=== PATIENT | male | born 1950 | race Caucasian/White ===

== ENCOUNTER → 2018-05-14 11:15 | Outpatient (CLI) | payer OTHER, SELFPAY ==
[2018-05-14 12:24] LABS: Add Manual Diff / Slide Review NO; Basophils Percent Auto 1.1 % (0-2); Eosinophils Percent Auto 3.9 % (2-4); Hematocrit 49.5 % (41-53); Hemoglobin 16.6 g/dL (13.5-17.5); Lymphocytes Percent Auto 29.3 % (25-40); Mean Corpuscular HGB Conc 33.5 % (30-36); Mean Corpuscular Hemoglobin 32.1 PG (26-34); Mean Corpuscular Volume 95.5 fL (80-100); Monocytes Percent Auto 7.7 % (3-14); Neutrophils Absolute Auto 4300 /uL (3000-5900); Platelet Count 216 X10^3/uL (150-400); Red Blood Cell Count 5.18 X10^6/uL (4.5-5.9); White Blood Cell Count 7.4 X10^3/uL (4.5-11.0)
[2018-05-14 12:50] LABS: BUN Creatinine Ratio 10.9 (6-22); Blood Urea Nitrogen 12 mg/dL (9-20); Carbon Dioxide 31 mmol/L (22-32); Chloride 103 mmol/L (98-107); Estimated Glomerular Filt Rate > 60.0 mL/min (>60); Glucose 89 mg/dL (80-110); HEMOLYSIS 18 (0-50); Potassium 5.3 mmol/L (3.4-5.1); Sodium 144 mmol/L (137-145)
== END ==
PROVIDERS: Visit Provider Orthopaedic Surgery
DX: Z01.812 Encounter for preprocedural laboratory examination (principal); Z01.818 Encounter for other preprocedural examination
CPT/HCPCS: 36415; 80048; 85025; 93005; 93010

== ENCOUNTER → 2018-06-12 15:57 | Outpatient (CLI) | payer OTHER, SELFPAY ==
--- NOTE | 2018-06-12 | DI.MRI.S_ITS ---
PROCEDURE: MR KNEE LT WO CON INDICATIONS: UNILATERAL PRIMARY OSTEOARTHRITIS LEFT KNEE. LEFT KNEE PAIN TECHNIQUE: Noncontrast sagittal PD fast spin echo and T2 fast spin echo with fat saturation, sagittal 3-D FLASH with fat saturation; coronal T1 spin echo and PD fast spin echo with fat saturation, and axial PD fast spin echo with fat saturation through the knee. COMPARISON: [facility], CR, KNEE MIN 4VW (LT), 11/20/2012, 14:55. FINDINGS: Image quality: Diagnostic Bones and joint: There is no acute fracture or dislocation. No suspicious osseous lesions are evident. There is a moderate-sized knee joint effusion is a tiny associated Sandoval's cyst. There are moderate to severe tricompartmental degenerative changes of the left kidney demonstrating joint space narrowing, extensive chondromalacia, developing marginal osteophytes, and areas of degenerative subjective marrow change. These findings are most pronounced within the medial tibiofemoral compartment. Cruciate ligaments: There is moderate grade partial-thickness tear evident involving the anterior cruciate ligament. The posterior cruciate ligament probably is intact. Menisci: There is a complex degenerative tear noted involving the body and posterior horn of the medial meniscus with near complete posterior root avulsion and inferior articular surface extension. A small displaced meniscal flap appears to extend into the posteromedial gutter. There is a very large lobulated para meniscal cyst identified extending along the posterior margin of the knee, which appears to be arising from the posterior horn of the medial meniscus. Additionally, degenerative cystic change within the adjacent bone is also felt to represent an intraosseous para meniscal cyst. This is cyst measures up to approximately 3.7 x 1.9 x 3.1 cm. The lateral meniscus demonstrates a grade partial-thickness tearing involving anterior and posterior roots. Otherwise, the lateral meniscus is intact and within normal limits. Medial structures: There is mild increased signal identified involving the medial collateral ligament. Irregularity at the femoral attachment is suggestive of partial thickness tearing, which may be chronic. The semimembranosus tendon insertion is thickened and demonstrates mild increased signal at its insertion The imaged portions of the pes anserinus tendons are unremarkable. No significant fluid is contained within the pes anserinus bursa. Lateral structures: The popliteal tendon is thickened at its origin. Edema of the proximal aspect of the popliteal muscle is noted. The lateral collateral ligament proper (fibular collateral ligament) and the proximal tibiofibular ligaments are intact. The distal aspect of the biceps femoris tendon and the iliotibial band are intact. Anterior structures: The quadriceps and patellar tendons are intact. There is no significant edema in the infrapatellar fat pad. IMPRESSION: 1. Moderate to severe degenerative changes of the left knee are most pronounced involving the medial compartment. 2. Complex tearing of the medial meniscus, as described. There is a large associated para meniscal cyst evident along the posterior margin of the knee. 3. Moderate grade partial-thickness tear of the anterior cruciate ligament is likely chronic. 4. Proximal popliteal tendinopathy with a corresponding muscle strain. 5. Mild distal semimembranosus tendinopathy. 6. Moderate-sized knee joint effusion. Dictated by: Pj Rooney M.D. on 06/12/2018 at 17:03 Approved by: Pj Rooney M.D. on 06/12/2018 at 17:07
== END ==
PROVIDERS: Visit Provider Orthopaedic Surgery
DX: M17.12 Unilateral primary osteoarthritis, left knee (principal); M25.562 Pain in left knee; S83.232A Complex tear of medial meniscus, current injury, left knee, initial encounter; S83.512A Sprain of anterior cruciate ligament of left knee, initial encounter; S83.8X1A Sprain of other specified parts of right knee, initial encounter; M25.462 Effusion, left knee
CPT/HCPCS: 73721

== ENCOUNTER 2018-07-16 10:25 | Inpatient (IN) | payer OTHER, SELFPAY ==
[2018-07-09 12:42] VITALS: BMI 25.5
[2018-07-16] VITALS (15 sets, daily range): BP systolic 122–182; BP diastolic 64–85; PULSE 55–69; RESP 14–19; TEMP 36.2–36.9; O2SAT 91–100; BMI 25.5
--- NOTE | 2018-07-16 06:30 | DI.RAD.S_ITS ---
PROCEDURE: XR KNEE LT 1TO2V INDICATIONS: prosthesis placement TECHNIQUE: 2 view(s) of the knee acquired. COMPARISON: [facility] Jae Wild, [place], XR KNEE ARTHRITIC SERIES LT, 05/14/2018, 9:24. FINDINGS: Bones: Patient is status post knee joint arthroplasty. Hardware components are in expected positions. Visualized bony structures are intact. Soft tissues: Overlying postoperative changes are noted. Expected postoperative changes within the overlying soft tissues are present with areas of soft tissue air and edema. Anterior skin cipriano are present. Scattered vascular calcifications are noted. IMPRESSION: Expected postoperative changes related to a total left knee arthroplasty. Dictated by: Pj Rooney M.D. on 07/16/2018 at 14:59 Approved by: Pj Rooney M.D. on 07/16/2018 at 15:00
[2018-07-16] MEDS: LACTATED RINGERS 1,000 ML 42 ML IV ×2 (11:22→14:11)
[2018-07-16] MEDS: PREGABALIN 75 MG CAPSULE PO (11:25)
[2018-07-16] MEDS: ACETAMINOPHEN 325 MG TABLET 975 MG PO (11:25)
[2018-07-16] MEDS: CELECOXIB 200 MG CAPSULE PO (11:25)
--- NOTE | 2018-07-16 12:34 | PM.PREOP ---
Pre-operative Note Interval Note Pre-op Check: Yes History & Physical Reviewed by Physician and Yes Exam Performed Changes: No
[2018-07-16] MEDS: CEFAZOLIN 2 GM/100 ML FROZ.PIGGY IV ×2 (13:42→21:09)
--- NOTE | 2018-07-16 14:05 | SUR.OPER ---
Supine on padded OR bed. Pillow under head, arms secured on padded armboards <90 degree abduction. Safety belt across torso. Non-operative leg secured with tape over blanket over lower leg. Operative leg secured in De[employer]/Primitivo positioner. Foam padded brace at thigh of operative leg.
[2018-07-16] MEDS: LIDOCAINE 1% W/EPI INJ 20 ML INJ (14:13)
[2018-07-16] MEDS: BUPIVACAINE 0.5% (PF) 10 ML, TRANEXAMIC ACID 1,000 MG, SODIUM CHLORIDE 0.9% 20 ML INJ (14:15)
[2018-07-16] MEDS: BUPIVACAINE 0.5% W/ EPI (PF) 20 ML, BUPIVACAINE LIPOSOME 266 MG, SODIUM CHLORIDE 0.9% 2... INJ (14:16)
[2018-07-16] MEDS: POVIDONE-IODINE 15 ML, SODIUM CHLORIDE 0.9% 250 ML TOP (14:17)
--- NOTE | 2018-07-16 15:06 | PM.OP.1 ---
Operative Date/Time/Diagnoses Date of procedure: 07/16/18 Time of procedure: 15:06 Pre-op diagnosis: Left knee osteoarthritis Post-op diagnosis: same Procedure & Clinicians Procedure: Left total knee arthroplasty Same procedure as scheduled: Yes Indications: The patient presents today for total knee arthroplasty after failure of conservative treatment. The nature of the procedure including the risks and benefits, alternatives, postoperative course and expected outcome were discussed and all questions answered. Consent was obtained. Operative site confirmed and marked. Surgeon: Davis Diallo Publicity Writer: Sheyla Schneider Anesthesia Type: General and Spinal Operative Notes Findings: Osteoarthritis Closure Type: primary Specimen(s): none sent Implants & Drains: [employer] BCS: 5 femoral component, 5 tibial component, 9 mm BCS polyethylene tray and 35 x 9 mm round patella Applied: implant(s) Estimated Blood Loss (mL): 50 Blood products transfused: none Tourniquet time (min): 26 Procedure in detail: The patient was taken to the operative suite and placed under general and spinal anesthesia. The patient was given prophylactic antibiotics prior to surgery. The patient was also given tranexamic acid, 1 g, just prior to surgery for postoperative hemostasis. The lateral knee was prepped and the joint injected with 20 mL of 1% Lidocaine with epinephrine. The knee was then prepped and draped in usual sterile fashion. The leg was exsanguinated with an Esmarch dressing and the tourniquet raised to 250 torr. A 15 cm anterior incision was made. Next a medial trivector arthrotomy was made. The extensor mechanism was marked to ensure accurate repair. Initial exposing dissection was carried out medially and laterally. The knee was then extended and the patellar thickness was measured and a cut made removing approximately 9 mm of bone with a goal of restoring normal patellar thickness. The patella was then sized and drilled. Some excess lateral bone was excised and the patellofemoral ligament released. The tourniquet was then released. The knee was then flexed and the [employer] femoral guide was placed. The anterior pins were placed and the distal rotation holes drilled. The distal cutting guide was placed and the templated distal femoral cut was made. The templating cutting block was then placed and the anterior, posterior and chamfer cuts made. The [employer] tibial guide was placed and the alignment checked along the axis of the proximal tibial with a devang. The proximal tibial cut was then made with an oscillating saw. All meniscus and bony debris was then removed. Flexion extension gaps were checked. There is just slight tightness medially which was corrected with percutaneous release with an 18 gauge needle of the MCL. The soft tissues were then injected with a combination of 20 mL of half percent Marcaine with epinephrine and 20 mL of Exparel. The trial components were then placed. The knee went into full extension and flexion beyond 120?. There was excellent medial- lateral balance throughout motion. There is a slight increased laxity in flexion versus extension. Patellar tracking was excellent. The trial components were removed and size is confirmed for the final implants. The knee was then exsanguinated with an Esmarch dressing and the tourniquet reapplied for cementing. The knee was cleansed with Pulsavac irrigation and dried. The final components were cemented in with high viscosity vacuum mixed bone cement with antibiotics. The knee was held in extension and the patellar clamp until the cement had adequately cured. The knee was then irrigated with dilute Betadine solution. The extensor mechanism was closed with 5 interrupted #1 Vicryl sutures in 90 degrees of flexion. [The joint was then injected with a combination of 1 g of tranexamic acid and 20 mL of quarter percent Marcaine with epinephrine.] The subcutaneous tissue was closed with 2-0 Vicryl. The skin was closed with [cipriano and surgical adhesive]. [ An Aquacell] dressing and Josh wrap were then applied. Complications: none Condition: stable Disposition: PACU Plan for aftercare: Standard postoperative total knee protocol.
--- NOTE | 2018-07-16 16:07 | SUR.PHASEI ---
PT TOLERATING COFFEE, DENIES PAIN, MOVING ALL EXTREMITIES, DRESSING REMAINS DRY AND INTACT. REPORT GIVEN TO ARIES FOWLER ON ACUTE CARE
[2018-07-16] MEDS: LACTATED RINGERS 1,000 ML 125 ML IV (16:48)
--- NOTE | 2018-07-16 17:12 | PC.NURSE ---
Addendum entered by Luz Horton R.N. 07/16/18 23:17: pt only able void about 50ml of urine at approximately 2245 .bladder scan sohws about 411ml of residual urine. educated pt on order for catheter which pt refused. pt voiced having a difficult insertion during prior knee surgery which required a urologist to insert catheter. pt verbally agreeable to increase oral intake of fluids and get up to bathroom more regularly with the oncoming shift supervisor to try to empty his bladder on his own. pt currently resting in bed, alarm on for safety. call light within reach. Original Note: Addendum entered by Luz Hroton R.N. 07/16/18 19:58: pt needs a lot of reinforcement and education on proper mobility and knee precautions. 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 staff again reinforced safety to pt and pt's . pt's sitting at bedside and laughing at the pt, does not assist staff in helping to keep pt safe (IE: will not notify staff when pt attempting to get up by self). pt with no void since about 1030 and denies any sensation to want to void. pt also refused to use urinal or have staff assist with attempting to void despite education about preventing bladder infection. staff will attempt to get pt to void again later in the shift. pt currently sitting up in chair with chair alarm. call light within reach. Original Note: Addendum entered by Luz Horton R.N. 07/16/18 18:36: pt attempting to get up from bed, states there is no pain to L knee. reinforced safety and fall precautions to pt as his numbness still persists but pt very insistent that he can sit at the bedside. bed alarm placed. at bedside and asked to inform staff if pt attempts to get up on his own. Original Note: Addendum entered by Luz Horton R.N. 07/16/18 17:22: pt verbalized that he is withdrawing from his cigarettes but declined to have a nicotine patch placed. pt states having coffee will help at this time. will continue to monitor. Original Note: POST-OP Received pt at approximately 1615 via bed. Ox3, pt with some inappropriate jokes regarding wanting friends to bring in alcohol or commenting that the female staff are good looking. at bedside during these remarks and will intermittently remind pt to behave. L knee with CHERISE wrap dressing CDI, no drains. pt states numbness to bilateral feet (which was present prior to surgery), and able to lift legs off the bed with minimal assist. pt placed on continuous O2 monitoring, needs occasionally reminders to leave pulse ox on. denies any nausea/vomiting. pt and oriented to room. call light within reach.
--- NOTE | 2018-07-16 17:19 | PT.IPTN ---
Current Diagnoses Unilateral primary osteoarthritis, left knee (07/16/18) Surgery Performed Operation Date: 07/16/18 12:15 Actual Procedures p Total Knee Arthroplasty(Left) - Davis Diallo MD Physical Therapy Treatment Note M3 PT-IP Subjective Start: 07/16/18 17:15 Freq: NEEDED Status: Active Protocol: Document 07/16/18 17:15 EA (Rec: 07/16/18 17:18 EA [id number]) Subjective Physical Therapy Visit Type Type Administrative Note Notes Patient approached in bed at 1700; denies complete sensory to both feet. Pain rated 0/10. Nurse in-charged reports patient just got in the unit 45 mins ago and feels patient is not ready at this time. Patient agreeable to participate in PT eval tomorrow morning.
[2018-07-16] MEDS: ASPIRIN EC 81 MG TABLET PO (21:08)
[2018-07-16] MEDS: NAPROXEN 250 MG TABLET 500 MG PO (21:08)
[2018-07-17 00:01] VITALS: BP 157/79; PULSE 53; RESP 16; TEMP 36.3; O2SAT 98
[2018-07-17] MEDS: LACTATED RINGERS 1,000 ML 125 ML IV (01:58)
[2018-07-17 04:25] VITALS: BP 129/75; PULSE 54; RESP 15; TEMP 36.6; O2SAT 96
[2018-07-17] MEDS: CEFAZOLIN 2 GM/100 ML FROZ.PIGGY IV (06:08)
[2018-07-17 06:29] LABS: Hematocrit 43.1 % (41-53); Hemoglobin 14.4 g/dL (13.5-17.5)
[2018-07-17 07:15] VITALS: BP 149/84; PULSE 54; RESP 16; TEMP 36.8; O2SAT 95
--- NOTE | 2018-07-17 08:20 | P.DS_ITS ---
History of Present Illness Date Patient Seen: 07/17/18 Time Patient Seen: 08:20 Chief complaint: 11711 LEFT TOTAL KNEE ARTHROPLASTY Narrative: The patient presents today for total knee arthroplasty after failure of conservative treatment. The nature of the procedure including the risks and benefits, alternatives, postoperative course and expected outcome were discussed and all questions answered. Consent was obtained. Operative site confirmed and marked. Discharge Providers Date of admission: 07/16/18 10:25 Primary care physician: Dirk Sparrow MD Consults: 07/09/18 13:46 Consult to Respiratory Therapy Evaluate & Treat Comment: Physician Instructions: Evaluate and treat 07/16/18 06:30 Consult to Anesthesiology Routine Comment: Consulting Provider: Anesthesiologist Reason for consultation: Regional block for post operative pain control 07/16/18 16:22 Consult to Discharge Planning Routine Comment: Consult to Physical Therapy Evaluate & Treat Comment: Physician Instructions: postop TKA protocol Consult to Respiratory Therapy Evaluate & Treat Comment: Physician Instructions: Evaluate and treat Discharge provider: Alem Gipson PA-C Discharge Date: 07/17/18 Summary Discharge Diagnosis: s/p left total knee arthroplasty Hospital Course: Eduardo admitted for left total knee arthroplasty with Dr. Diallo. Hospital course was unremarkable. On postop day 1. Patient was feeling well and wanted to go home. Dressing on left knee with CDI. Josh wrap in place. Patient was eating and voiding without difficulty or assistance. Calves were soft, compressible, nontender bilaterally. Status at Discharge Functional status at discharge: uses cane/walker Exam Vital Signs (past 8 hours): - 07/17/18 04:25 07/17/18 07:15 Temperature 97.8 F 98.3 F Pulse Rate 54 L 54 L Respiratory Rate 15 16 Blood Pressure 129/75 149/84 H Pulse Oximetry 96 95 Oxygen Delivery Method Nasal Cannula Oxygen Flow Rate 2 Narrative Exam Narrative: Patient lying in bed in no acute distress. He is alert and oriented x3. Patient has excellent range of motion in bed. Calves are soft, compressible, nontender bilaterally. Sensation intact to light touch throughout bilateral lower extremities. Pulses are symmetrical. His pain is well controlled with naproxen. Denies any nausea or vomiting. Objective Labs Result Diagrams: 07/17/18 05:52 Labs: Laboratory Results - last 24 hr 07/17/18 05:52 Hgb 14.4 Hct 43.1 Discharge Plan Discharge Plan Patient Disposition: Home Discharge comment: DC home today Discharge Med Rec/Prescriptions Prescriptions: New hydrocodone-acetaminophen [[place]] 5-325 mg tablet 1 tab PO Q4-6H PRN (Reason: pain) Qty: 30 RF: 0 aspirin 81 mg Tablet,Delayed Release (Dr/Ec) 81 mg PO BID Qty: 30 RF: 0 Continue lisinopril 20 mg Tablet 20 mg PO DAILY RF: 0 etodolac 400 mg Tablet 400 mg PO BID RF: 0 albuterol sulfate 1.25 mg/3 mL Solution For Nebulization 1.25 mg INHALATION QID PRN (Reason: asthma) RF: 0 Follow up/Referrals: Davis Diallo MD [Physician] - (Please follow up in 5-7 days ) Provider Discharge Instructions Cold/Heat Therapy: as needed Skin/Wound/Dressing Care Dressing: leave dressing in place Visit Report/Discharge Packet Instructions: DI for Knee Replacement Discharge Data Primary Care Provider: Dirk Sparrow Attending Provider: Davis Diallo Admit Date/Time: 07/16/18 10:25 Quality VTE Deep Vein Thrombosis/Pulmonary Embolism Present on Admission: No
[2018-07-17] MEDS: NAPROXEN 250 MG TABLET 500 MG PO (08:46)
[2018-07-17] MEDS: ACETAMINOPHEN 325 MG TABLET 975 MG PO (08:46)
[2018-07-17] MEDS: ASPIRIN EC 81 MG TABLET PO (08:46)
[2018-07-17] MEDS: LISINOPRIL 20 MG TABLET PO (08:48)
[2018-07-17 09:16] VITALS: PULSE 63; O2SAT 96
--- NOTE | 2018-07-17 09:24 | PT.IIE ---
Addendum entered and electronically signed by Opal Silverio PT 07/17/18 15:23: this is to certify that I reviewed this documentation and plan of care Original Note: Current Diagnoses Unilateral primary osteoarthritis, left knee (07/16/18) Surgery Performed Operation Date: 07/16/18 12:15 Actual Procedures p Total Knee Arthroplasty(Left) - Davis Diallo MD Surgical History (Last Updated 07/09/18 @ 13:24 by Jerica Riojas, RN) History of arthroplasty of right knee (Acute) Hx of hernia repair (Acute) Hx of tonsillectomy (Acute) Medical History (Last Updated 07/09/18 @ 13:33 by Jerica Riojas RN) Anxiety (Acute) Arthritis (Acute) Bradycardia (Acute) Chronic low back pain (Acute) Claustrophobia (Acute) Depression (Acute) Easy bruisability (Acute) HTN (hypertension) (Acute) Impetigo (Acute) Left shoulder pain (Acute) Numbness (Acute) Walking pneumonia (Acute) Physical Therapy Inpatient Evaluation/Re-Eval M1 PT/OT-IP Prior Functional Status Start: 07/16/18 17:15 Freq: NEEDED Status: Discharge Protocol: Document 07/17/18 09:24 (Rec: 07/17/18 10:54 [id number]) Medical Review Prior Functional Status Medical History Reviewed Yes Communication No deficits noted. Mobility and Gait Prior ambulation distance limited to ~100 yrds, independent, no AD. Prior Functional Level (Other details) All other mobilities reported as independent without AD. Social History Household Members spouse children Living Arrangements House Number of Floors (Floors) One Floor Number of Stairs To Enter/Railing? Primary access planned is ramp + landing + ramp with railing on R. Several other access points exist including 5 steps with L rail ascending, and ramp + ramp. Home Environment High Toilet Walk in Shower Home Equipment Front Wheel Walker Four Wheel Walker Shower Seat with Backrest Hand Held Shower Grab Bars In Shower Employment Status Retired Additional Social History Comment Pt lives with significant other who will be avaliable to assist him at d/c for 3 wks. They also live with daughter in law, grandson and several pets. M2 PT-IP Current Condition Start: 07/16/18 17:15 Freq: NEEDED Status: Discharge Protocol: Document 07/17/18 09:24 (Rec: 07/17/18 10:54 [id number]) Physical Therapy Current Condition Current Condition Evaluation Date 07/17/18 Treatment Diagnosis L TKA; difficulty with walking Onset Date 07/16/18 Weight Bearing Status Weight Bearing Status Weight Bear as Tolerated M3 PT-IP Subjective Start: 07/16/18 17:15 Freq: NEEDED Status: Discharge Protocol: Document 07/17/18 09:24 (Rec: 07/17/18 10:54 [id number]) Subjective Physical Therapy Visit Type Type Initial Evaluation Visit Start Time 09:24 Visit Stop Time 10:12 Total Visit Minutes 48 Number of EXPERT WITNESS Visits 0 Physical Therapy Visit Comments Patient Comments Pt states he feels good and is ready for PT. He is anxious to know if he is ready to go home. Therapy Pain Assessment Pain When Pain Assessed During Mobility Pain Present Pain Present Pain Reported Location Right Knee Intensity 4 Scale Used At rest pain 0/10. during mobility 4/10 Pain Management Techniques Apply Cold Elevation Re-positioning Timing of Activity with Medications M4 PT-IP Mobility and Gait Start: 07/16/18 17:15 Freq: NEEDED Status: Discharge Protocol: Document 07/17/18 09:24 (Rec: 07/17/18 10:54 [id number]) PT-Bed Mobility Assessment Supine to Sit Supine to Sit Standby Assistance Sit to Supine Sit to Supine Standby Assistance Scooting Scooting to Edge of Bed Standby Assistance PT-Transfer Assessment Sit to and From Stand Sit to and from Stand Standby Assistance Use of Upper Extremities Equipment Transfer Assistive Device Gait Belt Front Wheeled Walker Orthotic/Prosthetic Devices or Brace: No Transfers Transfer Destination Bed Chair Wheelchair Comments Mobility Comments Pt initially needing CGA for sit <> stands, progresses to SBA by the end of the session. He needs min cues for hand placement throughout the session. Resting in sitting BP = 146/75, HR 64. Standing and marching in place BP is 123/70. Gait Assessment Gait Gait Assistance Required: Standby Assistance Able to Maintain Weight Bearing Status Yes During Gait Assistive Devices Assistive Device Gait Belt Front Wheeled Walker Orthotic/Prosthetic Devices or Brace: No Gait Deviations General Gait Pattern Within Normal Limits Factors Limiting Gait Function Factors Limiting Gait Function Decreased Activity Tolerance Decreased Strength Limited Range of Motion Pain Poor Balance Poor Safety Awareness Comments Gait Comments 10 ft in room amb, CGA and 4ww pt reports some lightheadedness, but states this is the same since he woke up from surgery. 100ft +110 ft, pt is able to maintain consistent step through pattern during ambulation, SBA with fww. He needs cues to slow down. Education regarding self pacing and maintaining quality gait vs. speed was discussed. Post amb BP 135/71. HR 60. Stair Climbing Assessment Evaluation Level of Assist On Stairs Standby Assistance Devices Stair Climbing Assistive Devices Left Railing Technique/Endurance Stair Climbing Direction Ascend and Descend Stair Climbing Technique Step to Step Number of Steps Climbed 3 Query Text: Stair Climbing Set # Repetitions (reps) 2 Comments Stair Climbing Comments Trial 1: Pt up/down 3 steps with L rail ascending, CGA for balance and mod cues for foot placement and activation of LLE. Trial 2: Pt up/down 3 steps with L rail ascending, SBA and min cues for foot placement. Caregiver/spouse was educated in concepts of staying closeby for SBA and hand placement on gait belt. PT-Balance Assessment Sitting Balance and Reactions Static Sitting Balance Ability Good Dynamic Sitting Balance Ability Good Standing Balance and Reactions Static Standing Balance Ability Fair Dynamic Standing Balance Ability Fair Device Used fww M5 PT-IP Objective Assessments Start: 07/16/18 17:15 Freq: NEEDED Status: Discharge Protocol: Document 07/17/18 09:24 (Rec: 07/17/18 10:54 [id number]) Orientation Orientation/Cognition Level of Alertness Alert Orientation Name Birthday Date Place Situation Language Function Ability No Deficits Noted Safety Awareness Decreased Safety Awareness Gross Range of Motion Lower Extremity ROM Assessment Left Impaired Impairments LLE flexion ~80deg. Strength Lower Extremity Strength Assessment Left Impaired Comments Strength Comments LLE strength is grossly 4/5. RLE WNL. Sensation Assessment Comments Sensation Comments States he is able to feel his feet. M6 PT-IP Treatment Start: 07/16/18 17:15 Freq: NEEDED Status: Discharge Protocol: Document 07/17/18 09:24 (Rec: 07/17/18 10:54 [id number]) Physical Therapy Treatment Education Education Provided Precautions Weight Bearing Status Post-Op Packet Safety M7 PT-IP Assessment and Plan Start: 07/16/18 17:15 Freq: NEEDED Status: Discharge Protocol: Document 07/17/18 09:24 (Rec: 07/17/18 10:54 [id number]) PT Summary Assessment and Plan Potential Rehabilitation Potential Good Status of Condition at Evaluation Stable Summary Impairments Pain ROM Strength Balance Bed Mobility Transfers Gait Activity Tolerance Progress Towards Goals Progressing Toward Goals Assessment Summary Pt s/p L TKA and difficulty with gait. Today's session was tolerated well including 200+ ft ambulation, and stair climbing. Patient is safe to d/c home with 24/ assist and f/u in OP PT for rehab s/p TKA . Goals Bed Mobility Goal Independent Transfer Goal Independent Front Wheeled Walker Gait Goal Independent Front Wheel Walker Days to Meet Goals 2 Frequency of Treatment Frequency Of Treatment Twice a Day Treatment Plan Physical Therapy Treatment Plan Bed Mobility Training Transfer Training Gait Training Therapeutic Exercise Balance Retraining Post Op Education Discharge Planning Hot or Cold Pack Neuromuscular Re-ed Coordination Retraining Recommendations To Nursing Amount of Assist Needed 1 Person Assist Discharge Recommendations PT Discharge Recommendations Home with 24/7 Assist Outpatient PT
[2018-07-17] MEDS: [UNRECOGNIZED DRUG - OTHER] IM (09:35)
[2018-07-17] MEDS: INFLUENZA VACCINE 0.5 ML SYRINGE IM (09:39)
--- NOTE | 2018-07-17 10:34 | PC.NURSE ---
Day shift: Pt left unit at approx 1040 in WC with his spouse to private car. They will be going to [place] before going home to [place]. Paperwork signed and all questions answered. He has all personal belongings.
== END 2018-07-17 10:50 | disposition home or self-care (01) | DRG 470 ==
PROVIDERS: Admitting Provider Orthopaedic Surgery; PCP Family Medicine; Visit Provider Orthopaedic Surgery
PROC: 0SRD0JZ Replacement of Left Knee Joint with Synthetic Substitute, Open Approach (ICD-10-PCS; CPT 27447; principal; 2018-07-16 12:15)
DX: M17.12 Unilateral primary osteoarthritis, left knee (principal); Z96.651 Presence of right artificial knee joint
CPT/HCPCS: 36415; 73560; 85014; 85018; 90471; 90656; 90670; 94760; 97116; 97161; C1776; C9290; J0690; J1100; J2250; J2274; J2405; J2704; Q2038